=== PATIENT | male | born 1965 | race Caucasian/White ===

== ENCOUNTER 2023-01-08 09:07 | Emergency (ER) | payer SELFPAY ==
[2023-01-08] MEDS ORDERED: KETOROLAC TROMETHAMINE 15 MG/ML VIAL IVPUSH ONE (09:52)
[2023-01-08] MEDS ORDERED: ACETAMINOPHEN 500 MG TABLET (FP) PO ONE (09:52)
[2023-01-08 10:05] VITALS: BP 135/69; PULSE 98; RESP 18; TEMP 98.8; BMI 28.3
[2023-01-08] MEDS ORDERED: ACETAMINOPHEN 500 MG TABLET (FP) ONE (10:31)
[2023-01-08] MEDS ORDERED: KETOROLAC TROMETHAMINE 15 MG/ML VIAL ONE (10:31)
[2023-01-08 11:23] LABS: BASO % 1.3 % (0-2.0); EOS % 2.8 % (0-4.5); HEMATOCRIT 45.4 % (35.4-49); HEMOGLOBIN 15.3 GM/dL (11.7-16.9); LYMPH % 34.5 % (8-40); MCH 33.8 pg (25.7-33.7); MCHC 33.8 g/dl (32.0-35.9); MONO % 10.6 % (3.8-10.2); NEUT % 50.8 % (42.8-82.8); PLATELET COUNT 280 10^3/uL (134-434); RBC 4.53 M/mm3 (4.00-5.60); RDW 13.3 % (11.9-15.9); WHITE BLOOD COUNT 6.1 K/mm3 (4.0-10.0)
[2023-01-08 11:35] LABS: PH,URINE 5.5 (5.0-8.0); URINE APPEARANCE CLEAR; URINE BILIRUBIN NEGATIVE (NEGATIVE); URINE COLOR YELLOW; URINE GLUCOSE (UA) NEGATIVE (NEGATIVE); URINE KETONE NEGATIVE (NEGATIVE); URINE LEUK ESTERASE NEGATIVE (NEGATIVE); URINE NITRITE NEGATIVE (NEGATIVE); URINE PROTEIN TRACE (NEGATIVE); URINE UROBILINOGEN 0.2 mg/dL (0.2-1.0)
[2023-01-08 11:49] LABS: ALBUMIN 3.7 g/dl (3.4-5.0); BLOOD UREA NITROGEN 12.7 mg/dL (7-18); CALCIUM 9.2 mg/dL (8.5-10.1)
[2023-01-08 11:54] LABS: BILIRUBIN,TOTAL 0.4 mg/dL (0.2-1); TOT PROT 8.2 g/dl (6.4-8.2)
== END 2023-01-08 13:29 | disposition home or self-care (01) ==
LOC: JER 09:07
PROC: 3E0333Z Introduction of Anti-inflammatory into Peripheral Vein, Percutaneous Approach (ICD-10-PCS; principal; 2023-01-08)
DX: R21 Rash and other nonspecific skin eruption (principal); R10.9 Unspecified abdominal pain; B02.8 Zoster with other complications
CPT/HCPCS: 36415; 74176-TC; 80053; 81003; 85025; 87086; 99284-25